=== PATIENT | male | born 1990 | race Two or more races ===

== ENCOUNTER 2017-07-04 22:17 | Emergency (ER) | payer SELFPAY ==
[~2017-07-04] VITALS: Ht 170.2 cm; Wt 79.4 kg
[~2017-07-04 22:17] MED LIST: BENADRYL25 MG ORAL; NKM; PREDNISONE20 MG ORAL
[2017-07-04] MEDS ORDERED: IBUPROFEN600 MG ORAL (23:30)
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
[2017-07-04 23:46] VITALS: BP 133/82
--- NOTE | 2017-07-05 10:19 | Diagnostic Imaging Report ---
Indication: Headache. Head trauma Technique: Contiguous 5 mm thick transaxial imaging of the head obtained in a Siem[employer] Sensation [address] scanner. Soft tissue and bone windows generated. Automatic Exposure Control was utilized. Total Dose length Product (DLP): 1432.[address] Dose Index Volume (CTDIvol): 70.38 mGy Comparison: none Findings: The size and configuration of the cortical sulci, basal cisterns, and ventricles are within normal limits for age. There is no mass effect, midline shift, or edema identified. There is no evidence of acute hemorrhage or abnormal intra-axial or extra-axial fluid collections. The bones and soft tissues are unremarkable. Impression: No mass effect, edema or acute bleed. The CT scanner at [facility] is accredited by the [employer] and the scans are performed using dose optimization techniques as appropriate to a performed exam including Automatic Exposure control.
== END 2017-07-04 23:40 | disposition home or self-care (01) ==
LOC: EMR 22:50
DX: S09.90XA Unspecified injury of head, initial encounter (principal); M54.5 Low back pain; M54.2 Cervicalgia; V43.52XA Car driver injured in collision with other type car in traffic accident, initial encounter; Y92.410 Unspecified street and highway as the place of occurrence of the external cause
CPT/HCPCS: 70450; 99284